=== PATIENT | male | born 1965 | race Caucasian/White ===

== ENCOUNTER → 2016-11-16 | Outpatient (CLI) | payer OTHER ==
[~2016-11-16] MED LIST: BUPR100T8 PO; FOLI1TAB7 PO; INSU1INJ33 SC; MELO15TA10 PO; METF-384 PO; METH15TA2 PO; METH2.5T PO; OXYC1TAB3 PO; PRED20TA PO; PRLSR20 PO; VORT1TAB3 PO
[2016-11-16 10:50] LABS: BLOOD UREA NITROGEN 15 mg/dl (7-18); BUN/CREATININE RATIO 17.7 (10-20); CALCIUM 8.9 mg/dl (8.5-10.1); CARBON DIOXIDE 27 mmol/L (21-32); CHLORIDE 103 mmol/L (98-107); CREATININE 0.84 mg/dl (0.60-1.40); GLUCOSE 282 mg/dl (70-99); POTASSIUM 4.3 mmol/L (3.5-5.1); SODIUM 138 mmol/L (136-145)
[2016-11-16 10:54] LABS: CHOLESTEROL 120 mg/dl (0-200); HDL CHOLESTEROL 30 mg/dl; LDL CHOLESTEROL CALCULATED 70 mg/dl; TRIGLYCERIDES 102 mg/dl (0-150); VERY LOW DENSITY LIPOPROT CALC 20 mg/dl
[2016-11-16 11:41] LABS: ESTIMATED AVERAGE GLUCOSE 220 mg/dl; HA1C FLAG Normal (Normal)
== END | disposition home or self-care (01) ==
LOC: C.LAB1850 09:37
PROVIDERS: ATTEND Nurse Practitioner Adult Health
DX: E11.9 Type 2 diabetes mellitus without complications (principal); E78.5 Hyperlipidemia, unspecified

== ENCOUNTER → 2017-01-11 | Outpatient (CLI) | payer OTHER ==
--- NOTE | 2017-01-11 11:07 | DIAGNOSTIC IMAGING REPORT ---
RIGHT ANKLE MIN 3 VIEWS ROUTINE CLINICAL HISTORY: Right ankle pain COMPARISON: 04/15/2016 DISCUSSION: No acute fractures are visualized. There are mild degenerative changes. There are no erosive changes. The ankle mortise appears intact. There is no evidence for soft tissue swelling. IMPRESSION: Mild degenerative change. No acute fractures. Electronically signed by: Joshua Troy M.D. 01/11/2017 11:05 AM Dictated Date/Time: 01/11/2017 11:03 AM
--- NOTE | 2017-01-11 11:11 | DIAGNOSTIC IMAGING REPORT ---
LEFT ANKLE 3 VIEWS HISTORY: Left ankle pain. COMPARISON: Left ankle 04/15/2016. FINDINGS: There is no fracture or dislocation. Soft tissues are unremarkable. Mild degenerative changes within the ankle, unchanged. There are few well-corticated ossific densities at the medial and lateral malleoli consistent with old avulsion injuries. This is also unchanged. Chronic calcification at the plantar fascia. IMPRESSION: No change compared to the prior study. No acute fracture or dislocation within the left ankle. Electronically signed by: Bryan Jain M.D. 01/11/2017 11:09 AM Dictated Date/Time: 01/11/2017 11:07 AM
== END | disposition home or self-care (01) ==
LOC: C.RAD1850 10:27
PROVIDERS: ATTEND Internal Medicine Rheumatology
DX: L40.50 Arthropathic psoriasis, unspecified (principal); M25.579 Pain in unspecified ankle and joints of unspecified foot; Z79.899 Other long term (current) drug therapy

== ENCOUNTER → 2017-01-14 | Outpatient (CLI) | payer OTHER | END | disposition home or self-care (01) | LOC: C.LABSPEC 10:49 | PROVIDERS: ATTEND Family Medicine | DX: R10.9 Unspecified abdominal pain (principal) ==

== ENCOUNTER → 2017-01-18 | Outpatient (CLI) | payer OTHER ==
--- NOTE | 2017-01-18 14:24 | DIAGNOSTIC IMAGING REPORT ---
RENAL ULTRASOUND HISTORY: Acute right flank pain. COMPARISON: None. FINDINGS: Right kidney: 11.7 cm. No hydronephrosis. Normal corticomedullary differentiation and cortical thickness. Left kidney: 12.7 cm. No hydronephrosis. Normal corticomedullary differentiation and cortical thickness. Bladder: No bladder wall thickening. Only the right ureteral jet was identified this time. IMPRESSION: No hydronephrosis. Electronically signed by: Bryan Jain M.D. 01/18/2017 2:23 PM Dictated Date/Time: 01/18/2017 2:21 PM
== END | disposition home or self-care (01) ==
LOC: C.ULTR 13:41
PROVIDERS: ATTEND Internal Medicine
DX: R10.9 Unspecified abdominal pain (principal)

== ENCOUNTER → 2017-03-02 | Outpatient (CLI) | payer OTHER ==
[~2017-03-02] MED LIST changes: +[UNRECOGNIZED DRUG - CODE]
[2017-03-02 12:28] LABS: BASO % 0.6 %; BASO ABS # 0.04 K/uL (0-0.2); COMPLETE YES; EOS % 3.4 %; HEMATOCRIT 42.3 % (42-52); IG% 0.4 %; LYMPH % 34.8 %; LYMPH ABS # 2.33 K/uL (1.2-3.4); MEAN CORPUSCULAR HEMOGLOBIN 30.2 pg (25-34); MEAN CORPUSCULAR HGB CONC 34.8 g/dl (32-36); MEAN PLATELET VOLUME 9.2 fL (7.4-10.4); MONO % 7.5 %; NEUT % 53.3 %; PLATELET COUNT 354 K/uL (130-400); RED BLOOD COUNT 4.86 M/uL (4.7-6.1)
[2017-03-02 13:22] LABS: ALT/SGPT 58 U/L (12-78)
[2017-03-02 13:25] LABS: ALKALINE PHOSPHATASE 86 U/L (45-117); AST/SGOT 21 U/L (15-37)
== END | disposition home or self-care (01) ==
LOC: C.LAB1850 10:26
PROVIDERS: ATTEND Internal Medicine Rheumatology
DX: M25.579 Pain in unspecified ankle and joints of unspecified foot (principal); L40.50 Arthropathic psoriasis, unspecified; Z51.81 Encounter for therapeutic drug level monitoring; Z79.899 Other long term (current) drug therapy

== ENCOUNTER 2017-03-06 06:07 | Emergency (ER) | payer OTHER ==
[~2017-03-06] VITALS: Ht 180.3 cm; Wt 119.2 kg
[2017-03-06 06:10] VITALS: TEMP 36.4; Ht 180.3 cm; Wt 119.2 kg
[2017-03-06] MEDS ORDERED: OXYCODONE HCL IR 5 MG TAB (IMMEDIATE RELEASE) PO STA (06:39)
[2017-03-06] MEDS ORDERED: PROPARACAINE HCL 0.5% OP SOLN 15 ML BTL OP STA (07:00)
--- NOTE | 2017-03-06 07:44 | Ophthalmology Consultation ---
Ophthalmology Consultation Date of Service: Mar 06, 2017. Requested By: [facility] History of Present Illness: 51 y/o male w/ h/o scleritis, presents w/ several days of worsening eye pain. Followed in past by Dr. Sun. Has been using topical prednisone drops but have not been helping CC: pain Vision: decreased Location (of CC): OS Quality/Severity: severe Duration: 5-7 days Timing: sudden Context: psoriatic arthritis Associated Signs/Symptoms: none Modifying Factors: none No other eye complaints. Mood and Affect: normal Past Ocular History: Right Eye: 1. scleritis Left Eye: 1. scleritis Medications: see EMR Relevant Past Medical History: psoriatic arthritis DM2 [facility] Near card OD: 20/30 OS: 20/40 IOP: 18 OD, 20 OS VF: full to count fingers OU Motility: full OU External: The ocular adnexae are unremarkable. SLE: Lids/Lashes: wnl OU Conjunctiva/Sclera: quiet OD; +diffuse scleritis with more superior involvement --no blanching w/ 2.5% phenylephrine Cornea: clear OU Anterior Chamber: deep and quiet OU Iris: normal OU; no NVI OU Lens: trace nsc OU Dilated fundus exam OD: deferred Dilated fundus exam OS: deferred Assessment and Plan: 1. Scleritis OS -on methotrexate and meloxicam for psoriatic arthritis -recommend stop prednisolone drops -start prednisone 60mg x 3 days, then 40mg x 3 days, then 20mg x 3 days, then 10mg x 3 days, then stop -f/u w/ ophth this coming week -f/u w/ rheumatology Simeon Cary DO
[2017-03-06] MEDS ORDERED: NovoLIN-R INSULIN PER UNIT CHARGE SC STA (08:09)
[2017-03-06] MEDS ORDERED: METH15TA2 PO (08:10)
[2017-03-06] MEDS ORDERED: BUPR100T8 PO (08:10)
[2017-03-06] MEDS ORDERED: PRED20TA PO (08:13)
[2017-03-06] MEDS ORDERED: OXYC1TAB3 PO (08:14)
--- NOTE | 2017-03-06 08:15 | EMERGENCY ROOM VISIT NOTE ---
History Report prepared by Melissa: Catherine Cm Under the Supervision of: Dr. Cecil Ryan M.D. First contact with patient: 06:27 Chief Complaint: EYE ASSESSMENT Stated Complaint: EYE History of Present Illness The patient is a 51 year old male who presents to the Emergency Room with complaints of persistent left eye pain starting a couple days ago. He currently rates his discomfort as a 9/10 in severity. He has pain and drainage from his eye. He is unable to open his eye. He has a history of scleritis and psoriatic arthritis for the past 5 years. He has experienced 2-3 flare ups in the past. The flare ups usually lasts for 2 weeks at a time. He has prednisone drops to use. He has never had any injections or numbing medications for his eye. He denies having any family with rashes. He is on methotrexate and meloxicam. Source of History: patient Onset: couple days ago Position: eye (left) Symptom Intensity: 9/10 Quality: other (pain) Timing: other (persistent) Note: Pt has eye drainage. Review of Systems See HPI for pertinent positives & negatives. A total of 10 systems reviewed and were otherwise negative. Past Medical & Surgical Medical Problems: (1) Diab Tita Wo Compl, Type Ii Or Unspec Type, Not Uncntrld (2) Lumbago (3) Right arm cellulitis Surgical Problems: (1) H/O lumbosacral spine surgery Family History Diabetes mellitus FH: lung disease FHx: cancer FHx: heart disease Hypertension Kidney disease Kidney stones Social History Smoking Status: Never Smoker Alcohol Use: none Drug Use: none Marital Status: Housing Status: lives with significant other Current/Historical Medications Scheduled Bupropion (Wellbutrin Sr), 100 MG PO DAILY Folic Acid (Folvite), 1 MG PO DAILY Meloxicam (Mobic), 15 MG PO DAILY Methotrexate (Trexall), 15 MG PO WK Prednisone (Prednisone), 0 PO DAILY Scheduled PRN Oxycodone Immediate Rel Tab (Roxicodone Ir), 1-2 TAB PO Q4H PRN for Severe Pain Allergies Coded Allergies: Alfuzosin (Unverified Adverse Reaction, Unknown, "HEART ATTACK SYMPTOMS", 03/06/17) Aspirin (Unverified Adverse Reaction, Unknown, "STROKE LIKE SYMPTOMS", ) Physical Exam Vital Signs Date Time Temp Pulse Resp B/P Pulse Ox O2 Delivery O2 Flow Rate FiO2 03/06/17 08:26 82 17 131/100 97 03/06/17 06:10 36.4 93 20 142/86 95 Room Air Right Eye Acuity: 20/40 Left Eye Acuity: 20/200 Physical Exam GENERAL: Patient is uncomfortable appearing and in moderate distress. HEENT: No acute trauma, normocephalic atraumatic, mucous membranes moist, no nasal congestion. Injected left sclera with severe pain/photophobia. Mild drainage currently, unable to get visual acuity due to pain. NECK: No stridor, no adenopathy, no meningismus, trachea is midline. LUNGS: No dyspnea. Clear to auscultation and equal bilaterally. No wheeze, no rhonchi. HEART: Regular rate and rhythm. No murmurs, rubs, gallops appreciated. EXTREMITIES: Normal motion all extremities, no cyanosis, no edema. NEUROLOGIC: Alert and oriented, no acute motor or sensory deficits, no focal weakness, cranial nerves grossly intact. SKIN: No rash, no jaundice, no diaphoresis. Medical Decision & Procedures Laboratory Results Test 03/06/17 08:02 Bedside Glucose 344 mg/dl (70-99) Medications Administered Medications (Trade) Dose Ordered Sig/Demian Route Start Time Stop Time Status Last Admin Dose Admin Oxycodone HCl (Roxicodone Immediate Rel Tab) 10 mg NOW STAT PO 03/06/17 06:39 03/06/17 06:40 DC 03/06/17 06:47 10 MG Proparacaine HCl (Alcaine 0.5% Oph Soln) 2 drops NOW STAT OP 03/06/17 07:00 03/06/17 07:02 DC 03/06/17 07:00 2 DROPS Prednisone (PredniSONE TAB) 60 mg NOW STAT PO 03/06/17 08:02 03/06/17 08:03 DC 03/06/17 08:15 60 MG Insulin Human Regular (novoLIN-R U-100 PER UNIT) 10 units NOW STAT SC 03/06/17 08:09 03/06/17 08:10 DC 03/06/17 08:16 10 UNITS ED Course 0632: The patient was evaluated in room A2. A complete history and physical exam was performed. 0639: Oxycodone HCl 10 mg PO. 0655: I discussed the patient's case with Maya Linn - Ophthalmology. He suggested medications for the patient. He will come to see him. 0700: Proparacaine HCl 2 drops OP. 0701: I reevaluated the patient. I informed him of Dr. Cary plans. 0741: Dr. Cary is at bedside. 0750: I spoke with Dr. Cary regarding his recommendations for the patient. 0757: I reevaluated the patient. He is still having pain in his eye. I discussed results and discharge instructions. He has a follow up appointment with endocrine on Wednesday. He notes previously having been on insulin. He is comfortable with receiving a short acting dose of insulin in the ED. He has agreed to monitoring his sugars and avoiding all carbohydrates for the next few days. I have asked case management to discuss with him follow up with ophthalmology next week. He verbalized understanding and agreement. The patient is ready for discharge. 0802: Prednisone 60 mg PO. 0809: Insulin Human Regular 10 units SC. Medical Decision Pleasant 51 yr old male arrives with complaint of left eye irritation. Long history of scleritis periodically on steroids. He was evaluated by Optho who feel he will need systemic prednisone (see note). He is diabetic and sugars are already elevated. Given SC insulin and strict instructions regarding no carbs and need for close BG monitoring. Made it clear to him there is a chance he may end up getting admitted. He will be seen by Endo on Wednesday. Reviewed symptoms requiring return. Asked case management to help set him up with general optho as Dr Cary is retinal specialist. Consults Time Called: [phone] Consulting Physician: Maya Linn - Ophthalmology Returned Call: 06 I discussed the patient's case with him. He will come to see the patient. Impression Primary Impression: Scleritis of left eye Scribe Attestation The scribe's documentation has been prepared under my direction and personally reviewed by me in its entirety. I confirm that the note above accurately reflects all work, treatment, procedures, and medical decision making performed by me. Departure Information Dispostion Home / Self-Care Prescriptions Oxycodone Immediate Rel Tab (ROXICODONE IR) 5 Mg Tab 1-2 TAB PO Q4H Y for Severe Pain, #30 TAB Prov: Cecil Ryan M.D. 03/06/17 Prednisone (Prednisone) 20 Mg Tab 0 PO DAILY, #16 TAB 3 TABS DAILY FOR 2 DAYS, THEN 2 TABS DAILY FOR 3 DAYS, THEN 1 TAB DAILY FOR 3 DAYS, THEN 1/2 TAB DAILY FOR 3 DAYS. Prov: Cecil Ryan M.D. 03/06/17 Referrals Debbie Lassiter CRNP (PCP) Patient Instructions My [facility] Additional Instructions It is very important you follow up with quality control inspector heading in then week. Case management will help you set this up during business hours if you have difficulty. Call your insurance company to discuss which providers in area take your insurance. You have received a narcotic pain medication prescription. These medications may cause drowsiness and should not be used with other sedative medications. Do not drive, drink alcohol, perform dangerous activities, nor make important decisions after taking these medications. desktop manager use or inappropriate use may lead to addiction. Return if worsening pain, fevers, swelling, or other concerns. Avoid as much carbohydrates/sugars as possible. Keep your appointment for Wednesday morning with network applications specialist as your sugars are high, and you are starting on steroids.
[2017-03-06 08:26] VITALS: BP 131/100; PULSE 82; O2SAT 97
[2017-04-14] MEDS ORDERED: MELO15TA10 PO (08:10)
[2017-04-14] MEDS ORDERED: FOLI1TAB7 PO (08:10)
== END 2017-03-06 08:28 | disposition home or self-care (01) ==
LOC: C.EDB 06:08 → C.EDA 08:28
DX: H15.002 Unspecified scleritis, left eye (principal); L40.50 Arthropathic psoriasis, unspecified; E11.9 Type 2 diabetes mellitus without complications; Z83.3 Family history of diabetes mellitus; Z83.6 Family history of other diseases of the respiratory system; Z80.9 Family history of malignant neoplasm, unspecified; Z82.49 Family history of ischemic heart disease and other diseases of the circulatory system; Z84.1 Family history of disorders of kidney and ureter; Z79.899 Other long term (current) drug therapy

== ENCOUNTER → 2017-03-08 | Outpatient (CLI) | payer OTHER ==
[2017-03-08 12:39] LABS: ESTIMATED AVERAGE GLUCOSE 235 mg/dl; HA1C FLAG Normal (Normal)
[2017-03-08 14:09] LABS: RATIO 12.2 mcg/mg (0-30.0)
== END | disposition home or self-care (01) ==
LOC: C.LAB1850 10:42
PROVIDERS: ATTEND Nurse Practitioner Family
DX: E11.9 Type 2 diabetes mellitus without complications (principal)

== ENCOUNTER → 2017-03-15 | Outpatient (CLI) | payer OTHER ==
[2017-03-15 17:04] LABS: ALT/SGPT 64 U/L (12-78); AST/SGOT 27 U/L (15-37); BLOOD UREA NITROGEN 15 mg/dl (7-18); BUN/CREATININE RATIO 17.1 (10-20); CALCIUM 9.2 mg/dl (8.5-10.1); CARBON DIOXIDE 28 mmol/L (21-32); CHLORIDE 99 mmol/L (98-107); CREATININE 0.88 mg/dl (0.60-1.40); GLUCOSE 172 mg/dl (70-99); POTASSIUM 3.8 mmol/L (3.5-5.1); SODIUM 134 mmol/L (136-145)
[2017-03-15 17:05] LABS: ALB/GLOB RATIO 1.1 (0.9-2); ALKALINE PHOSPHATASE 77 U/L (45-117); AMYLASE 109 U/L (25-115)
[2017-03-17 21:36] LABS: MYELOPEROXIDASE AB <1.0 AI (<1.0)
== END | disposition home or self-care (01) ==
LOC: C.LAB1850 12:22
PROVIDERS: ATTEND Internal Medicine Rheumatology
DX: E11.9 Type 2 diabetes mellitus without complications (principal); N28.89 Other specified disorders of kidney and ureter; Z87.442 Personal history of urinary calculi; R14.0 Abdominal distension (gaseous); H15.009 Unspecified scleritis, unspecified eye; Z79.899 Other long term (current) drug therapy; L40.50 Arthropathic psoriasis, unspecified

== ENCOUNTER → 2017-03-22 | Outpatient (CLI) | payer OTHER ==
[~2017-03-22] MED LIST changes: +OPTIRAY 320 IV PRN
--- NOTE | 2017-03-22 14:05 | DIAGNOSTIC IMAGING REPORT ---
CT ABD/PELVIS IV CONTRAST ONLY CLINICAL HISTORY: N28.89 Renal massR19.00 Abdominal [id number] Night [id number] COMPARISON STUDY: Renal ultrasound dated 01/18/2017 TECHNIQUE: Following the IV administration of 95 mL of Optiray-320, CT scan of the abdomen and pelvis was performed from the lung bases to the proximal femurs. Images are reviewed in the axial, sagittal, and coronal planes. IV contrast was administered without complication. CT DOSE: 1015.26 mGycm FINDINGS: Lower chest: The heart is normal in size and configuration, without pericardial effusion. The lung bases and pleural spaces are clear. Liver: There is hepatic steatosis. No focal masses are visualized. Gallbladder: Unremarkable. Spleen: Normal in size and attenuation. Pancreas: Unremarkable. Adrenal glands: Unremarkable. Kidneys: There is a to small to characterize millimeter hypodensity within the midpole the left kidney. There are no definite solid renal masses. No collecting system filling defects are visualized. Bowel: There are no transition zones indicate bowel obstruction. The appendix appears normal. There is no acute diverticulitis. Peritoneum: There is no intraperitoneal free air or abdominal ascites. There is small fat-containing umbilical hernia. There is a small fat-containing left inguinal hernia. Vasculature: The abdominal aorta is normal in course and caliber. Adenopathy: None. Pelvic viscera: There is bladder wall thickening. Skeletal structures: No destructive osseous lesions are seen. IMPRESSION: 1. No solid renal masses identified 2. Bladder wall thickening 3. Hepatic steatosis 4. No evidence of bowel obstruction. No evidence of free air 5. Normal appendix. No evidence of acute diverticulitis. Electronically signed by: Joshua Troy M.D. 03/22/2017 2:04 PM Dictated Date/Time: 03/22/2017 1:59 PM
== END | disposition home or self-care (01) ==
LOC: C.CTS 13:00
PROVIDERS: ATTEND Nurse Practitioner Adult Health
DX: N28.89 Other specified disorders of kidney and ureter (principal); R61 Generalized hyperhidrosis; R19.00 Intra-abdominal and pelvic swelling, mass and lump, unspecified site

== ENCOUNTER → 2017-03-25 | Outpatient (CLI) | payer OTHER ==
[~2017-03-25] MED LIST changes: -OPTIRAY 320 IV PRN
== END | disposition home or self-care (01) ==
LOC: C.LAB1850 10:10
PROVIDERS: ATTEND Nurse Practitioner Adult Health
DX: R79.89 Other specified abnormal findings of blood chemistry (principal)

== ENCOUNTER 2017-04-14 18:08 | Emergency (ER) | payer OTHER ==
[~2017-04-14] VITALS: Ht 180.3 cm; Wt 115.4 kg
[~2017-04-14 18:08] MED LIST changes: -INSU1INJ33 SC; -METF-384 PO; -METH2.5T PO; -PRLSR20 PO; -VORT1TAB3 PO; -[UNRECOGNIZED DRUG - CODE]
[2017-04-14 18:11] VITALS: BP 153/85; PULSE 73; TEMP 36.6; O2SAT 97; Ht 180.3 cm; Wt 115.4 kg
[2017-04-14] MEDS ORDERED: SODIUM CHLORIDE 0.9% 1000ML 1,000 ML IV STA (18:20)
[2017-04-14] MEDS ORDERED: SODIUM CHLORIDE 0.9% 1000ML 500 ML IV STA (18:20)
--- NOTE | 2017-04-14 18:30 | EMERGENCY ROOM VISIT NOTE ---
History Report prepared by Melissa: Reva White Under the Supervision of: Dr. Michael Fountain M.D. First contact with patient: 18:16 Chief Complaint: ABNORMAL LABS Stated Complaint: PANCREATITIS, ABN LABS History of Present Illness The patient is a 51 year old male who presents to the Emergency Room with complaints of pancreatitis. The patient has had an abnormal pancreas test today at [facility] by lab work, and had high lipase levels 3 weeks ago. He has intermittent abdominal pain every day and rates the pain at a 5/10. He states that he was on medication that causes high lipase levels. He stopped taking the medication 3 weeks ago when his symptoms began. The patient is nauseous and the pain worsens when he eats. He denies urinary symptoms and vomiting. Recently, he had a CT scan with contrast that was normal. He also had an ultrasound of his gallbladder, pancreas, liver, and right kidney. He has a history of night sweats for the last couple of years. The patient has no abdominal surgery history. Source of History: patient Onset: 3 weeks ago Position: abdomen Symptom Intensity: rated at a 5/10 Modifying Factors (Worsening): eating Associated Symptoms: + nausea Review of Systems See HPI for pertinent positives & negatives. A total of 10 systems reviewed and were otherwise negative. Past Medical & Surgical Medical Problems: (1) Diab Tita Wo Compl, Type Ii Or Unspec Type, Not Uncntrld (2) Lumbago (3) Right arm cellulitis Surgical Problems: (1) H/O lumbosacral spine surgery Family History Diabetes mellitus FH: lung disease FHx: cancer FHx: heart disease Hypertension Kidney disease Kidney stones Social History Smoking Status: Former Smoker Alcohol Use: none Drug Use: none Marital Status: Housing Status: lives with significant other Current/Historical Medications Scheduled Folic Acid (Folvite), 1 MG PO 6XWK Insulin Degludec (Tresiba Flextouch), 55 UNITS SC HS Meloxicam (Mobic), 15 MG PO 6XWK Metformin Hcl (Glucophage), 1,000 MG PO BID Methotrexate Sodium (Methotrexate), 10 MG PO WK Omeprazole (Prilosec), 20 MG PO DAILY Vortioxetine HBr (Trintellix), 20 MG PO STOPPED Allergies Coded Allergies: Alfuzosin (Verified Adverse Reaction, Unknown, "HEART ATTACK SYMPTOMS", ) Aspirin (Verified Adverse Reaction, Unknown, "STROKE LIKE SYMPTOMS", ) Physical Exam Vital Signs Date Time Temp Pulse Resp B/P (MAP) Pulse Ox O2 Delivery O2 Flow Rate FiO2 04/14/17 18:11 36.6 73 22 153/85 97 Room Air Physical Exam GENERAL: Patient is in no acute distress. HEENT: No acute trauma, normocephalic atraumatic, mucous membranes moist, no nasal congestion, no scleral icterus. NECK: No stridor, no adenopathy, no meningismus, trachea is midline. LUNGS: Clear to auscultation bilaterally, no wheeze, no rhonchi, breath sounds equal. HEART: Without murmurs gallops or rubs, regular rate and rhythm. ABDOMEN: Soft, nontender, bowel sounds positive, no hernias, no peritonitis. EXTREMITIES: No cyanosis or edema, full range of motion of all the joints without pain or difficulty, no signs for acute trauma. NEUROLOGIC: Oriented x 3, no acute motor or sensory deficits, no focal weakness. SKIN: No rash, no jaundice, no diaphoresis. Medical Decision & Procedures Laboratory Results 04/14/17 19:40 Red Blood Count 4.83, Mean Corpuscular Volume 87.8, Mean Corpuscular Hemoglobin 30.6, Mean Corpuscular Hemoglobin Concent 34.9, Mean Platelet Volume 9.1, Neutrophils (%) (Auto) 54.0, Lymphocytes (%) (Auto) 30.1, Monocytes (%) (Auto) 11.3, Eosinophils (%) (Auto) 3.8, Basophils (%) (Auto) 0.4, Neutrophils # (Auto ) 3.87, Lymphocytes # (Auto) 2.16, Monocytes # (Auto) 0.81, Eosinophils # (Auto ) 0.27, Basophils # (Auto) 0.03 04/14/17 19:40 Test 04/14/17 19:40 White Blood Count 7.17 K/uL (4.8-10.8) Red Blood Count 4.83 M/uL (4.7-6.1) Hemoglobin 14.8 g/dL (14.0-18.0) Hematocrit 42.4 % (42-52) Mean Corpuscular Volume 87.8 fL (80-100) Mean Corpuscular Hemoglobin 30.6 pg (25-34) Mean Corpuscular Hemoglobin Concent 34.9 g/dl (32-36) Platelet Count 360 K/uL (130-400) Mean Platelet Volume 9.1 fL (7.4-10.4) Neutrophils (%) (Auto) 54.0 % Lymphocytes (%) (Auto) 30.1 % Monocytes (%) (Auto) 11.3 % Eosinophils (%) (Auto) 3.8 % Basophils (%) (Auto) 0.4 % Neutrophils # (Auto) 3.87 K/uL (1.4-6.5) Lymphocytes # (Auto) 2.16 K/uL (1.2-3.4) Monocytes # (Auto) 0.81 K/uL (0.11-0.59) Eosinophils # (Auto) 0.27 K/uL (0-0.5) Basophils # (Auto) 0.03 K/uL (0-0.2) RDW Standard Deviation 42.2 fL (36.4-46.3) RDW Coefficient of Variation 13.2 % (11.5-14.5) Immature Granulocyte % (Auto) 0.4 % Immature Granulocyte # (Auto) 0.03 K/uL (0.00-0.02) Anion Gap 7.0 mmol/L (3-11) Est Creatinine Clear Calc Drug Dose 137.8 ml/min Estimated GFR () 118.4 Estimated GFR (Non- 102.2 BUN/Creatinine Ratio 18.7 (10-20) Calcium Level 9.4 mg/dl (8.5-10.1) Total Bilirubin 0.4 mg/dl (0.2-1) Aspartate Amino Transf (AST/SGOT) 21 U/L (15-37) Alanine Aminotransferase (ALT/SGPT) 52 U/L (12-78) Alkaline Phosphatase 76 U/L (45-117) Total Protein 7.5 gm/dl (6.4-8.2) Albumin 3.7 gm/dl (3.4-5.0) Globulin 3.8 gm/dl (2.5-4.0) Albumin/Globulin Ratio 1.0 (0.9-2) Lipase 374 U/L (73-393) Laboratory results reviewed by me. ED Course 1820: The patient was evaluated in room B6. A complete history and physical exam was performed. 2030: Reevaluated the patient. Discussed results and discharge instructions: He verbalized understanding and agreement. The patient is ready for discharge. Medical Decision The patient is a 51 year old male who presents to the ED with complaints of pancreatitis. Differential diagnoses considered include pancreatitis, gall stones, medication reaction, dehydration, pancreatic duct narrowing. There is no leukocytosis or concerning anemia. No significant electrolyte abnormality, kidney failure or hepatitis. There is no pancreatitis. On exam, the patient has no pain across the abdomen. He has not been vomiting, he is not toxic. I reviewed the patient's recent outpatient workup. Nothing really has been found to explain his pancreatitis. He did stop a medication which may have been responsible for the pancreatitis. The patient's lipase was elevated earlier today on laboratory testing although it is normal now. I wonder if the earlier value was an error. The patient does not appear to have pancreatitis clinically. He was reassured by the current negative lipase test. He is being discharged with outpatient follow-up. Medication Reconciliation: I attest that I have personally reviewed the patient' s current medication list. Blood Pressure Screening: Patient was found to have an elevated blood pressure and was referred to their primary doctor for recheck and further treatment. Impression Primary Impression: Pancreatitis Scribe Attestation The scribe's documentation has been prepared under my direction and personally reviewed by me in its entirety. I confirm that the note above accurately reflects all work, treatment, procedures, and medical decision making performed by me. Departure Information Dispostion Home / Self-Care Referrals No Doctor, Assigned (PCP) Patient Instructions My [facility]
[2017-04-14] MEDS ORDERED: METH2.5T PO (19:00)
[2017-04-14] MEDS ORDERED: VORT1TAB3 PO (19:00)
[2017-04-14] MEDS ORDERED: INSU1INJ33 SC (19:00)
[2017-04-14] MEDS ORDERED: METF-384 PO (19:00)
[2017-04-14] MEDS ORDERED: PRLSR20 PO (19:00)
[2017-04-14 19:53] LABS: BASO % 0.4 %; BASO ABS # 0.03 K/uL (0-0.2); COMPLETE YES; EOS % 3.8 %; HEMATOCRIT 42.4 % (42-52); IG% 0.4 %; LYMPH % 30.1 %; LYMPH ABS # 2.16 K/uL (1.2-3.4); MEAN CELL VOLUME 87.8 fL (80-100); MEAN CORPUSCULAR HEMOGLOBIN 30.6 pg (25-34); MEAN CORPUSCULAR HGB CONC 34.9 g/dl (32-36); MEAN PLATELET VOLUME 9.1 fL (7.4-10.4); MONO % 11.3 %; PLATELET COUNT 360 K/uL (130-400); RED BLOOD COUNT 4.83 M/uL (4.7-6.1); WHITE BLOOD COUNT 7.17 K/uL (4.8-10.8)
[2017-04-14 20:12] LABS: BUN/CREATININE RATIO 18.7 (10-20); CREATININE 0.81 mg/dl (0.60-1.40); POTASSIUM 4.1 mmol/L (3.5-5.1)
[2017-04-14 20:20] LABS: CALCIUM 9.4 mg/dl (8.5-10.1)
== END 2017-04-14 20:41 | disposition home or self-care (01) ==
LOC: C.EDB 18:09
DX: K85.90 Acute pancreatitis without necrosis or infection, unspecified (principal); E11.9 Type 2 diabetes mellitus without complications; M54.5 Low back pain; Z83.3 Family history of diabetes mellitus; Z83.6 Family history of other diseases of the respiratory system; Z80.9 Family history of malignant neoplasm, unspecified; Z82.49 Family history of ischemic heart disease and other diseases of the circulatory system; Z84.1 Family history of disorders of kidney and ureter; Z87.891 Personal history of nicotine dependence; Z79.899 Other long term (current) drug therapy

== ENCOUNTER → 2017-04-14 | Outpatient (CLI) | payer OTHER ==
[2017-04-14 09:49] LABS: ALKALINE PHOSPHATASE 68 U/L (45-117); ALT/SGPT 51 U/L (12-78); AMYLASE 191 U/L (25-115); BLOOD UREA NITROGEN 14 mg/dl (7-18); BUN/CREATININE RATIO 15.9 (10-20); CARBON DIOXIDE 27 mmol/L (21-32); CHLORIDE 107 mmol/L (98-107); GLUCOSE 184 mg/dl (70-99); SODIUM 141 mmol/L (136-145)
[2017-04-14 09:51] LABS: AST/SGOT 17 U/L (15-37)
[2017-04-14 09:52] LABS: CALCIUM 8.6 mg/dl (8.5-10.1)
== END | disposition home or self-care (01) ==
LOC: C.LAB1850 08:09
PROVIDERS: ATTEND Nurse Practitioner Adult Health
DX: N32.89 Other specified disorders of bladder (principal); Z79.899 Other long term (current) drug therapy; R14.0 Abdominal distension (gaseous); R61 Generalized hyperhidrosis; R74.8 Abnormal levels of other serum enzymes

== ENCOUNTER → 2017-04-14 | Outpatient (CLI) | payer OTHER ==
--- NOTE | 2017-04-14 12:27 | DIAGNOSTIC IMAGING REPORT ---
NUCLEAR GASTRIC EMPTYING STUDY CLINICAL HISTORY: Bloating. Diabetes. COMPARISON STUDY: Abdominal CT dated 03/22/2017. TECHNIQUE: Following the oral administration of 1.177 mCi of technetium 99m sulfur colloid in egg sandwich and 8 ounces of water, static abdominal images are obtained anteriorly and posteriorly at 0 minutes, 1 hour, 2 hour, and 4 hour time intervals. Gastric emptying was calculated utilizing the geometric mean method. FINDINGS: There is approximately 70% activity remaining at the 1 hour time interval, 30% remaining at the 2 hour time interval (normal is less than 60%), and 2% activity remaining at the 4 hour time interval (normal is less than 10%). IMPRESSION: Findings are consistent with normal gastric emptying for solids. Electronically signed by: Michael Snider M.D. 04/14/2017 12:26 PM Dictated Date/Time: 04/14/2017 12:25 PM
== END | disposition home or self-care (01) ==
LOC: C.NUCL 06:56
PROVIDERS: ATTEND Registered Nurse
DX: E11.65 Type 2 diabetes mellitus with hyperglycemia (principal); R14.0 Abdominal distension (gaseous)

== ENCOUNTER → 2017-04-14 | Outpatient (CLI) | payer OTHER ==
--- NOTE | 2017-04-14 07:26 | DIAGNOSTIC IMAGING REPORT ---
ABDOMINAL ULTRASOUND, RIGHT UPPER QUADRANT HISTORY: Pain. Nausea. R14.0 [id number] Indigestion Right upper [id number]. COMPARISON: None. FINDINGS: Pancreas: The pancreas demonstrates a normal echotexture. Liver: Fatty infiltration Gallbladder: No gallbladder wall thickening. No gallstones. CBD: 4 mm Right kidney: No hydronephrosis. IMPRESSION: Fatty infiltration of liver. Otherwise negative study Electronically signed by: Jorge Wilder M.D. 04/14/2017 7:25 AM Dictated Date/Time: 04/14/2017 7:23 AM
== END | disposition home or self-care (01) ==
LOC: C.ULTR 06:53
PROVIDERS: ATTEND Nurse Practitioner Adult Health
DX: K30 Functional dyspepsia (principal); R14.0 Abdominal distension (gaseous); K76.0 Fatty (change of) liver, not elsewhere classified

== ENCOUNTER → 2017-04-15 | Outpatient (CLI) | payer OTHER ==
[~2017-04-15] MED LIST changes: +INSU1INJ33 SC; +METF-384 PO; +METH2.5T PO; +PRLSR20 PO; +VORT1TAB3 PO; +[UNRECOGNIZED DRUG - CODE]
[2017-04-15 12:45] LABS: AMYLASE 61 U/L (25-115)
== END | disposition home or self-care (01) ==
LOC: C.LAB1850 10:46
PROVIDERS: ATTEND Nurse Practitioner Adult Health
DX: R79.89 Other specified abnormal findings of blood chemistry (principal); R74.8 Abnormal levels of other serum enzymes

== ENCOUNTER → 2017-04-19 | Outpatient (CLI) | payer OTHER ==
[~2017-04-19] MED LIST changes: -BUPR100T8 PO; -METH15TA2 PO; -OXYC1TAB3 PO; -PRED20TA PO
== END | disposition home or self-care (01) ==
LOC: C.LAB1850 13:22
PROVIDERS: ATTEND Nurse Practitioner Adult Health
DX: R79.89 Other specified abnormal findings of blood chemistry (principal)

== ENCOUNTER → 2017-06-07 | Outpatient (CLI) | payer OTHER ==
[~2017-06-07] MED LIST changes: -[UNRECOGNIZED DRUG - CODE]
[2017-06-07 13:43] LABS: ALT/SGPT 62 U/L (12-78); AMYLASE 56 U/L (25-115); BLOOD UREA NITROGEN 14 mg/dl (7-18); BUN/CREATININE RATIO 15.4 (10-20); CARBON DIOXIDE 27 mmol/L (21-32); CHLORIDE 108 mmol/L (98-107); CREATININE 0.89 mg/dl (0.60-1.40); GLUCOSE 107 mg/dl (70-99); POTASSIUM 3.9 mmol/L (3.5-5.1); SODIUM 142 mmol/L (136-145)
[2017-06-07 13:46] LABS: ALKALINE PHOSPHATASE 59 U/L (45-117); AST/SGOT 32 U/L (15-37)
[2017-06-07 14:58] LABS: URINE APPEARANCE CLEAR (CLEAR); URINE BILIRUBIN NEG (NEG); URINE COLOR YELLOW; URINE NITRITE NEG (NEG); URINE SPECIFIC GRAVITY 1.025 (1.000-1.030); UROBILINOGEN NEG (NEG); ZZUR CULT IF INDIC CLEAN CATCH YES
[2017-06-07 14:59] LABS: MANUAL MICROSCOPIC REQUIRED? NO; REVIEW REQ? NO
== END | disposition home or self-care (01) ==
LOC: C.LAB1850 12:16
PROVIDERS: ATTEND Nurse Practitioner Adult Health
DX: R79.89 Other specified abnormal findings of blood chemistry (principal); R63.5 Abnormal weight gain

== ENCOUNTER → 2017-06-09 | Outpatient (CLI) | payer OTHER | END | disposition home or self-care (01) | LOC: C.LABSPEC 16:16 | PROVIDERS: ATTEND Dermatology | DX: B35.3 Tinea pedis (principal) ==

== ENCOUNTER → 2017-06-15 | Outpatient (CLI) | payer OTHER ==
[2017-06-15 17:31] LABS: BASO % 0.4 %; BASO ABS # 0.03 K/uL (0-0.2); COMPLETE YES; EOS % 4.6 %; HEMATOCRIT 39.4 % (42-52); IG% 0.3 %; LYMPH % 42.8 %; LYMPH ABS # 3.07 K/uL (1.2-3.4); MEAN CELL VOLUME 87.8 fL (80-100); MEAN CORPUSCULAR HEMOGLOBIN 31.6 pg (25-34); MEAN PLATELET VOLUME 9.3 fL (7.4-10.4); MONO % 10.7 %; NEUT % 41.2 %; PLATELET COUNT 327 K/uL (130-400); RED BLOOD COUNT 4.49 M/uL (4.7-6.1); WHITE BLOOD COUNT 7.18 K/uL (4.8-10.8)
[2017-06-15 17:53] LABS: ALT/SGPT 41 U/L (12-78); AMYLASE 65 U/L (25-115); AST/SGOT 22 U/L (15-37)
[2017-06-15 17:55] LABS: ALKALINE PHOSPHATASE 70 U/L (45-117)
== END | disposition home or self-care (01) ==
LOC: C.LAB1850 16:14
PROVIDERS: ATTEND Nurse Practitioner Adult Health
DX: Z51.81 Encounter for therapeutic drug level monitoring (principal); Z79.899 Other long term (current) drug therapy; L40.50 Arthropathic psoriasis, unspecified; R74.8 Abnormal levels of other serum enzymes

== ENCOUNTER → 2017-06-28 | Outpatient (CLI) | payer OTHER ==
[2017-06-28 11:02] LABS: ALB/GLOB RATIO 0.9 (0.9-2); ALKALINE PHOSPHATASE 64 U/L (45-117); ALT/SGPT 47 U/L (12-78); AMYLASE 93 U/L (25-115); AST/SGOT 23 U/L (15-37); BLOOD UREA NITROGEN 13 mg/dl (7-18); BUN/CREATININE RATIO 14.1 (10-20); CARBON DIOXIDE 30 mmol/L (21-32); CHLORIDE 106 mmol/L (98-107); CREATININE 0.93 mg/dl (0.60-1.40); GLUCOSE 184 mg/dl (70-99); SODIUM 138 mmol/L (136-145)
[2017-06-28 11:17] LABS: ESTIMATED AVERAGE GLUCOSE 171 mg/dl; HA1C FLAG Normal (Normal)
== END | disposition home or self-care (01) ==
LOC: C.LAB1850 09:07
PROVIDERS: ATTEND Nurse Practitioner Adult Health
DX: R74.8 Abnormal levels of other serum enzymes (principal); R60.9 Edema, unspecified; E11.9 Type 2 diabetes mellitus without complications

== ENCOUNTER → 2017-07-26 | Outpatient (CLI) | payer OTHER | END | disposition home or self-care (01) | LOC: C.LABSPEC 12:29 | PROVIDERS: ATTEND Dermatology | DX: R21 Rash and other nonspecific skin eruption (principal) ==

== ENCOUNTER → 2017-08-09 | Outpatient (CLI) | payer OTHER ==
[2017-08-09 09:46] LABS: BASO % 0.7 %; BASO ABS # 0.04 K/uL (0-0.2); COMPLETE YES; EOS % 3.9 %; IG% 0.2 %; LYMPH % 35.7 %; LYMPH ABS # 1.99 K/uL (1.2-3.4); MEAN CORPUSCULAR HEMOGLOBIN 30.2 pg (25-34); MEAN CORPUSCULAR HGB CONC 35.6 g/dl (32-36); MEAN PLATELET VOLUME 9.6 fL (7.4-10.4); NEUT % 50.5 %; PLATELET COUNT 292 K/uL (130-400); RED BLOOD COUNT 5.06 M/uL (4.7-6.1); WHITE BLOOD COUNT 5.57 K/uL (4.8-10.8)
== END | disposition home or self-care (01) ==
LOC: C.LAB1850 08:56
PROVIDERS: ATTEND Surgery
DX: K82.8 Other specified diseases of gallbladder (principal); F33.1 Major depressive disorder, recurrent, moderate; F41.1 Generalized anxiety disorder

== ENCOUNTER → 2017-08-19 | Day surgery (SDC) | payer OTHER ==
[2017-08-10 07:24] VITALS: BMI 38.0
[~2017-08-19] VITALS: Ht 180.3 cm; Wt 124.5 kg
[~2017-08-19] MED LIST changes: +CEFAZOLIN 3000 MG/65 ML D5W IV SCH; +HEPARIN SOD 5000 UNIT/0.5 ML CARP SQ SCH; -INSU1INJ33 SC; +LACTATED RINGER'S 1000ML 1,000 ML IV SCH; -PRLSR20 PO; -VORT1TAB3 PO
[2017-08-19 07:07] VITALS: BP 140/73; PULSE 68; TEMP 36.7; O2SAT 97; Ht 180.3 cm; Wt 124.5 kg
--- NOTE | 2017-08-23 07:07 | EDITING REQUIRED CODING QUERY ---
DIAGNOSIS NEEDED Please provide a diagnosis for why the surgery was going to be performed: DIAGNOSIS:symptomatic gallstones Please provide a reason for why the procedure was cancelled: DIAGNOSIS: pt decided day of surgery he did not want to have the surgery and left before I even had a chance to talk to him Thank you for your assistance, Erica Coyne - Dice Maker
== END | disposition home or self-care (01) ==
LOC: C.ACU 06:53
PROVIDERS: ATTEND Surgery
DX: K80.20 Calculus of gallbladder without cholecystitis without obstruction (principal); Z53.20 Procedure and treatment not carried out because of patient's decision for unspecified reasons; Z01.810 Encounter for preprocedural cardiovascular examination; Z01.812 Encounter for preprocedural laboratory examination

== ENCOUNTER 2017-10-10 03:02 | Inpatient (IN) | payer OTHER ==
[~2017-10-10] VITALS: Ht 180.3 cm; Wt 126.8 kg
[~2017-10-10 03:02] MED LIST changes: -CEFAZOLIN 3000 MG/65 ML D5W IV SCH; -HEPARIN SOD 5000 UNIT/0.5 ML CARP SQ SCH; -LACTATED RINGER'S 1000ML 1,000 ML IV SCH
[2017-10-10] MEDS ORDERED: LORAZEPAM 2 MG/ML 1 ML VIAL ONE (03:08)
--- NOTE | 2017-10-10 03:10 | EMERGENCY ROOM VISIT NOTE ---
History Report prepared by Jean-Paulibe: Delaney Mcclain Under the Supervision of: Dr. Elton Patterson D.O. First contact with patient: 03:03 Stated Complaint: EVALUATION History of Present Illness The patient is a 52 year old male who presents to the Emergency Room with complaints of needing a psychiatric evaluation. He was brought to the ED via EMS and is accompanied by state police. EMS reports the patient was involved in a 12 hour stand off with police yesterday and into today. The incident started when he would not let his leave their home and threatened to kill her and their cats. She was eventually able to escape and ran to a local police station. The police came to the home, accompanied by [employer], where the patient threatened to kill police and also requested the police kill him. The patient and police were involved in a 12 hour stand off where multiple gunshots were fired but the patient was not hit. He was tased twice by police. He is still combative on exam. History is limited secondary to patients clinical condition. Case Management notes there is a 302 petition on file for the patient as well as a warrant for his arrest from state police. Source of History: patient, police, EMS History Limited By: sedation Onset: DATABASES COMPUTER CONSULTANT Position: other (global) Timing: constant Review of Systems See HPI for pertinent positives and negatives. A limited number systems were reviewed and were otherwise negative secondary to the patients clinical condition. Past Medical & Surgical Medical Problems: (1) Diab Tita Wo Compl, Type Ii Or Unspec Type, Not Uncntrld (2) Hernia of abdominal cavity (3) Lumbago (4) Right arm cellulitis Surgical Problems: (1) H/O lumbosacral spine surgery Family History Diabetes mellitus FH: lung disease FHx: cancer FHx: heart disease Hypertension Kidney disease Kidney stones Social History Smoking Status: Former Smoker Alcohol Use: none Drug Use: none Marital Status: Housing Status: lives with significant other Occupation Status: unemployed Current/Historical Medications Scheduled Folic Acid (Folvite), 1 MG PO 6XWK Meloxicam (Mobic), 15 MG PO 6XWK Metformin Hcl (Glucophage), 1,000 MG PO BID Methotrexate Sodium (Methotrexate), 10 MG PO WK Allergies Coded Allergies: Insulin (Verified Allergy, Severe, LOCALIZED REDNESS/SWELLING/LUMPS, ) PT STATES ALL INSULINS HE IS ALLERGIC TO Vortioxetine (Verified Allergy, Severe, PANCREATITIS, 08/10/17) Insulin Glargine (Verified Allergy, Intermediate, REDNESS LOCALIZED, LUMPS UNDER SKIN, 08/10/17) Alfuzosin (Verified Adverse Reaction, Unknown, "HEART ATTACK SYMPTOMS", ) Aspirin (Verified Adverse Reaction, Unknown, "STROKE LIKE SYMPTOMS", ) Physical Exam Vital Signs Date Time Temp Pulse Resp B/P (MAP) Pulse Ox O2 Delivery O2 Flow Rate FiO2 10/10/17 05:16 36.6 91 16 142/91 97 Nasal Cannula 2.0 10/10/17 04:54 36.6 97 18 152/86 95 Nasal Cannula 2.0 10/10/17 04:27 98 20 177/86 95 Nasal Cannula 2.0 10/10/17 04:03 102 20 173/97 90 Room Air 10/10/17 03:16 120 10/10/17 03:13 36.6 117 30 179/103 97 Room Air Physical Exam GENERAL: Patient is agitated, foaming at the mouth, writhing around on the bed HEAD: Contusion with tenderness to right occipital region of head. HENT: Normocephalic, atraumatic. Oropharynx unremarkable. EYES: Normal conjunctiva. Sclera non-icteric. NECK: Supple. No nuchal rigidity. FROM. No JVD. RESPIRATORY: Clear to auscultation. CARDIAC: Tachycardic heart rate, normal rhythm. Extremities warm and well perfused. Pulses equal. ABDOMEN: Soft, non-distended. No tenderness to palpation. No rebound or guarding. No masses. RECTAL: Deferred. MUSCULOSKELETAL: Abrasion to left chest. Abrasion to left flank. Abrasions to the upper extremities bilaterally. Chest examination reveals no tenderness. The back is symmetrical on inspection without obvious abnormality. There is no CVA tenderness to palpation. No joint edema. LOWER EXTREMITIES: Calves are equal size bilaterally and non-tender. No edema. No discoloration. NEURO: Patient is alert, moving all extremities but agitated, not cooperative. SKIN: No rash or jaundice noted. PSYCHIATRIC: Patient is agitated. Medical Decision & Procedures ER Provider Diagnostic Interpretation: X ray results as stated below per my interpretation and radiologist interpretation. Other radiology results as stated below per my review and radiologist interpretation CT C SPINE: Comparison: None Impression: No acute traumatic abnormality Comment: No cervical fracture Vertebral bodies are normal in height and alignment with only mild degenerative change at C5-C6 Intervertebral disc spaces maintained Cervical spinal canal is patent Radiologist: Horacio Barrera M.D. CT HEAD: Comparison: CT head November 18, 2014 Impression: Right frontal scalp laceration. No skull fracture. Mild streak artifact. No acute intracranial abnormality. Radiologist: Horacio Barrera M.D. CHEST X-RAY Negative for infiltrate. Laboratory Results 10/10/17 03:08 Red Blood Count 5.11, Mean Corpuscular Volume 87.3, Mean Corpuscular Hemoglobin 30.9, Mean Corpuscular Hemoglobin Concent 35.4, Mean Platelet Volume 9.2, Neutrophils (%) (Auto) 88.0, Lymphocytes (%) (Auto) 7.8, Monocytes (%) (Auto) 3.7, Eosinophils (%) (Auto) 0.0, Basophils (%) (Auto) 0.2, Neutrophils # (Auto) 11.45, Lymphocytes # (Auto) 1.01, Monocytes # (Auto) 0.48, Eosinophils # (Auto) 0.00, Basophils # (Auto) 0.02 10/10/17 03:08 Test 10/10/17 03:08 10/10/17 03:45 10/10/17 04:27 White Blood Count 13.00 K/uL (4.8-10.8) Red Blood Count 5.11 M/uL (4.7-6.1) Hemoglobin 15.8 g/dL (14.0-18.0) Hematocrit 44.6 % (42-52) Mean Corpuscular Volume 87.3 fL (80-100) Mean Corpuscular Hemoglobin 30.9 pg (25-34) Mean Corpuscular Hemoglobin Concent 35.4 g/dl (32-36) Platelet Count 327 K/uL (130-400) Mean Platelet Volume 9.2 fL (7.4-10.4) Neutrophils (%) (Auto) 88.0 % Lymphocytes (%) (Auto) 7.8 % Monocytes (%) (Auto) 3.7 % Eosinophils (%) (Auto) 0.0 % Basophils (%) (Auto) 0.2 % Neutrophils # (Auto) 11.45 K/uL (1.4-6.5) Lymphocytes # (Auto) 1.01 K/uL (1.2-3.4) Monocytes # (Auto) 0.48 K/uL (0.11-0.59) Eosinophils # (Auto) 0.00 K/uL (0-0.5) Basophils # (Auto) 0.02 K/uL (0-0.2) RDW Standard Deviation 42.2 fL (36.4-46.3) RDW Coefficient of Variation 13.3 % (11.5-14.5) Immature Granulocyte % (Auto) 0.3 % Immature Granulocyte # (Auto) 0.04 K/uL (0.00-0.02) Anion Gap 16.0 mmol/L (3-11) Est Creatinine Clear Calc Drug Dose 75.7 ml/min Estimated GFR () 59.3 Estimated GFR (Non- 51.2 BUN/Creatinine Ratio 8.0 (10-20) Calcium Level 9.1 mg/dl (8.5-10.1) Total Bilirubin 0.5 mg/dl (0.2-1) Direct Bilirubin 0.1 mg/dl (0-0.2) Aspartate Amino Transf (AST/SGOT) 32 U/L (15-37) Alanine Aminotransferase (ALT/SGPT) 65 U/L (12-78) Alkaline Phosphatase 93 U/L (45-117) Total Protein 8.1 gm/dl (6.4-8.2) Albumin 4.0 gm/dl (3.4-5.0) Beta-Hydroxybutyric Acid 3.33 mg/dL (0.2-2.81) Thyroid Stimulating Hormone (TSH) 2.560 uIu/ml (0.300-4.500) Ethyl Alcohol mg/dL < 3.0 mg/dl (0-3) Urine Color YELLOW Urine Appearance CLEAR (CLEAR) Urine pH 5.0 (4.5-7.5) Urine Specific [place] 1.038 (1.000-1.030) Urine Protein NEG (NEG) Urine Glucose (UA) 3+ (NEG) Urine Ketones 1+ (NEG) Urine Occult Blood TRACE (NEG) Urine Nitrite NEG (NEG) Urine Bilirubin NEG (NEG) Urine Urobilinogen NEG (NEG) Urine Leukocyte Esterase NEG (NEG) Urine WBC (Auto) 1-5 /hpf (0-5) Urine RBC (Auto) 0-4 /hpf (0-4) Urine Hyaline Casts (Auto) 1-5 /lpf (0-5) Urine Epithelial Cells (Auto) 5-10 /lpf (0-5) Urine Bacteria (Auto) NEG (NEG) Urine Opiates Screen NEG (NEG) Urine Methadone, Qualitative NEG (NEG) Urine Barbiturates NEG (NEG) Urine Phencyclidine (PCP) Level NEG (NEG) Ur Amphetamine/Methamphetamine NEG (NEG) MDMA (Ecstasy) Screen NEG (NEG) Urine Benzodiazepines Screen NEG (NEG) Urine Cocaine Metabolite NEG (NEG) Urine Marijuana (THC) POS (NEG) Arterial Blood pH 7.38 (7.35-7.45) Arterial Blood Partial Pressure CO2 38 mmHg (35-46) Arterial Blood Partial Pressure O2 88 mm/Hg (80-95) Arterial Blood HCO3 22 mmol/L (19-24) Arterial Blood Oxygen Saturation 96.7 % (90-95) Arterial Blood Base Excess -2.7 mEq/L (-9-1.8) Arterial Blood Gas Delivery 2 L Bernard Test POS (POS) Laboratory results reviewed by me Medications Administered Medications (Trade) Dose Ordered Sig/Demian Route Start Time Stop Time Status Last Admin Dose Admin Lorazepam (Ativan Inj) 2 mg STK-MED ONCE .ROUTE 10/10/17 03:08 10/10/17 03:09 DC 10/10/17 03:10 2 MG Ziprasidone (Geodon IM) 20 mg NOW STAT IM 10/10/17 03:12 10/10/17 03:13 DC 10/10/17 03:23 20 MG Sodium Chloride 1,000 ml @ 999 mls/hr Q1H1M STAT IV 10/10/17 04:04 10/10/17 05:04 DC 10/10/17 04:07 999 MLS/HR Sodium Chloride 500 ml @ 999 mls/hr Q31M STAT IV 10/10/17 04:34 10/10/17 05:04 DC 10/10/17 04:57 999 MLS/HR ED Course 0303: The patient was evaluated in room B1. A complete history and physical exam was performed. 0308: Ativan 2 mg IV. 0312: Geodon 20 mg IM. 0318: I reevaluated the patient. He wont speak to me but he does shake his head. 0404: NSS 1000 ml @ 999 mls/hr IV. 0434: 500 ml @ 999 mls/hr IV. 0450: I discussed the patients case with Dr. Dawson [facility] Hospitalist. The patient will be further evaluated. Medical Decision The differential diagnoses considered include mood disorder, infection, hypoglycemia, electrolyte abnormalities, cardiac sources, intracerebral event, toxicologic, neurologic, as well as others were entertained. Patient was more cooperative after administration of IV Ativan and IM Geodon. Patient states he has chronic back pain and type 2 diabetes. Patient has mild diabetic ketoacidosis by numbers with a anion gap elevated blood sugar elevated beta hydroxybutyrate but a normal pH. Patient states he is allergic to insulin. Patient was initially treated with IV fluids. Patient cannot be completely medically cleared for full psychiatric evaluation. Patient is in the custody of the [facility] police. Patient will be admitted to the hospital for further medical treatment as well as psychiatric treatment. Case was discussed with the [facility] hospitalists 5 AM for admission Medication Reconcilliation Current Medication List: was personally reviewed by me Blood Pressure Screening Patient's blood pressure: Elevated blood pressure The patients elevated blood pressure will be further addressed by the inpatient hospital medicine team. Consults Time Called: [phone] Consulting Physician: Dr. Dawson [facility] Hospitalist Returned Call: [phone] I discussed the patients case with Dr. Dawson [facility] Hospitalist. The patient will be further evaluated. Impression Primary Impression: DKA (diabetic ketoacidoses) Additional Impressions: Agitation Acute psychosis Closed head injury Critical Care I have personally spent greater than 35 minutes of critical care time in the direct management of this patient. This includes bedside care, interpretation of diagnostic studies, and testing, discussion with consultants, patient, and family members, and other required patient management activities. This 35 minutes is in excess of all separately billable procedures. Scribe Attestation The scribe's documentation has been prepared under my direction and personally reviewed by me in its entirety. I confirm that the note above accurately reflects all work, treatment, procedures, and medical decision making performed by me. Departure Information Dispostion Being Evaluated By Hospitalist Referrals Debbie Lassiter CRNP (PCP) Problem Qualifiers
[2017-10-10] MEDS ORDERED: ZIPRASIDONE 20 MG/ML SDV IM STA (03:12)
[2017-10-10 03:24] LABS: BASO % 0.2 %; BASO ABS # 0.02 K/uL (0-0.2); COMPLETE YES; HEMATOCRIT 44.6 % (42-52); IG% 0.3 %; LYMPH % 7.8 %; LYMPH ABS # 1.01 K/uL (1.2-3.4); MEAN CELL VOLUME 87.3 fL (80-100); MEAN CORPUSCULAR HEMOGLOBIN 30.9 pg (25-34); MEAN CORPUSCULAR HGB CONC 35.4 g/dl (32-36); MEAN PLATELET VOLUME 9.2 fL (7.4-10.4); MONO % 3.7 %; PLATELET COUNT 327 K/uL (130-400); RED BLOOD COUNT 5.11 M/uL (4.7-6.1)
[2017-10-10 03:57] LABS: CALCIUM 9.1 mg/dl (8.5-10.1); CREATININE 1.53 mg/dl (0.60-1.40); POTASSIUM 4.4 mmol/L (3.5-5.1); THYROID STIMULATING HORMONE 2.56 uIu/ml (0.300-4.500)
[2017-10-10] MEDS ORDERED: SODIUM CHLORIDE 0.9% 1000ML 1,000 ML IV STA (04:04)
[2017-10-10 04:23] LABS: BETA-HYDROXYBUTYRATE 3.33 mg/dL (0.2-2.81)
[2017-10-10 04:24] LABS: URINE APPEARANCE CLEAR (CLEAR); URINE BILIRUBIN NEG (NEG); URINE COLOR YELLOW; URINE NITRITE NEG (NEG); URINE SPECIFIC GRAVITY 1.038 (1.000-1.030); UROBILINOGEN NEG (NEG)
[2017-10-10 04:26] LABS: MANUAL MICROSCOPIC REQUIRED? NO; REVIEW REQ? NO
[2017-10-10] MEDS ORDERED: SODIUM CHLORIDE 0.9% 500ML 500 ML IV STA (04:34)
[2017-10-10 04:35] LABS: ALLEN TEST POS (POS); ARTERIAL BLD GAS O2 SATURATION 96.7 % (90-95); ARTERIAL BLOOD GAS BASE EXCESS -2.7 mEq/L (-9-1.8); ARTERIAL BLOOD GAS HCO3 22 mmol/L (19-24); ARTERIAL BLOOD GAS PO2 88 mm/Hg (80-95); ARTERIAL BLOOD GAS pH 7.38 (7.35-7.45); O2 ADMINISTRATION 2 L
[2017-10-10 04:40] LABS: BENZODIAZEPINE, URINE NEG (NEG); COCAINE,URINE NEG (NEG); PHENCYCLIDINE, URINE NEG (NEG)
[2017-10-10] MEDS ORDERED: DKA GOAL RANGE 150-250 mg/dl 1 EA ONE (04:45)
[2017-10-10] MEDS ORDERED: GLUCOSE 10 TABS/TUBE PO PRN ×2 (05:00→06:00)
[2017-10-10] MEDS ORDERED: INSULIN REGULAR 250 UNITS in SODIUM CHLORIDE 0.9% 250ML 250 ML IV SCH (05:00)
[2017-10-10] MEDS ORDERED: NovoLIN R BOLUS FROM BAG IV ONE (05:00)
[2017-10-10] MEDS ORDERED: GLUCAGON FOR INJ 1 MG VIAL SQ PRN ×2 (05:00→06:00)
[2017-10-10] MEDS ORDERED: DEXTROSE 50% 50 ML SYR IV PRN ×2 (05:00→06:00)
[2017-10-10] MEDS ORDERED: GLUCOSE 40% GEL 15 GM TUBE PO PRN ×2 (05:00→06:00)
[2017-10-10] MEDS ORDERED: ACETAMINOPHEN 325 MG TAB PO PRN (05:45)
[2017-10-10] MEDS ORDERED: ACETAMINOPHEN IV 100 ML IV PRN (06:00)
[2017-10-10] MEDS ORDERED: MoRPHine SULFATE 4 MG/ML 1 ML CARP\\VIAL IV PRN (06:00)
[2017-10-10] MEDS ORDERED: LORAZEPAM 2 MG/ML 1 ML VIAL IV PRN (06:00)
[2017-10-10] MEDS ORDERED: ONDANSETRON INJ 2 MG/ML 2 ML VIAL IV PRN (06:00)
[2017-10-10] MEDS ORDERED: OLANZAPINE 10 MG/2.1 ML SDV IM PRN (06:00)
[2017-10-10] MEDS ORDERED: FAMOTIDINE IV INJ 20 MG in DEXTROSE 5% 100ML 100 ML IV SCH (06:00)
[2017-10-10 06:14] VITALS: O2SAT 97
--- NOTE | 2017-10-10 06:35 | History and Physical ---
History & Physical Date & Time of Service: Oct 10, 2017 at 06:12 Chief Complaint: Evaluation Primary Care Physician: Debbie Lassiter CRNP History of Present Illness Source: clinic records, hospital records, EMS The patient is a 52-year-old male brought to the emergency department by EMS and the state police for a psychiatric evaluation. EMS reported to the ED that the patient barricaded himself and his in his house. He reportedly threatened to kill his and their cats. After the was able to escape, she ran to the police station, who then came to their home, accompanied by [employer]. The patient threatened to kill police and also asked the police to kill him. The patient and police were reportedly involved in 12 hour stand off were multiple gunshots were exchanged, but the patient was not hit. He was able to be removed from the house after being gassed, and was still somewhat combative after being tased twice by the police. The patient himself during my examination is sedated after receiving Geodon 20 mg IM and Ativan 2 mg IV and is not able to contribute to the history of present illness or review of systems. There is a 302 petition on file for the patient and a warmth for his arrest from state police. Past Medical/Surgical History Medical Problems: (1) Diab Tita Wo Compl, Type Ii Or Unspec Type, Not Uncntrld Status: Chronic (2) Lumbago Status: Chronic (3) Right arm cellulitis Status: Resolved Surgical Problems: (1) H/O lumbosacral spine surgery Status: Chronic Family History Diabetes mellitus FH: lung disease FHx: cancer FHx: heart disease Hypertension Kidney disease Kidney stones Social History Smoking Status: Unknown if Ever Smoked Smokeless Tobacco Use: Unknown Alcohol Use: unknown Drug Use: marijuana Marital Status: Housing status: lives with family Occupational Status: unemployed Immunizations History of Influenza Vaccine: No History of Tetanus Vaccine?: No History of Pneumococcal: No History of Hepatitis B Vaccine: No Multi-Drug Resistant Organisms History of MDRO: No Allergies Coded Allergies: Insulin (Verified Allergy, Severe, LOCALIZED REDNESS/SWELLING/LUMPS, ) PT STATES ALL INSULINS HE IS ALLERGIC TO Vortioxetine (Verified Allergy, Severe, PANCREATITIS, 08/10/17) Insulin Glargine (Verified Allergy, Intermediate, REDNESS LOCALIZED, LUMPS UNDER SKIN, 08/10/17) Alfuzosin (Verified Adverse Reaction, Unknown, "HEART ATTACK SYMPTOMS", ) Aspirin (Verified Adverse Reaction, Unknown, "STROKE LIKE SYMPTOMS", ) Home Medications Scheduled Folic Acid (Folvite), 1 MG PO 6XWK Meloxicam (Mobic), 15 MG PO 6XWK Metformin Hcl (Glucophage), 1,000 MG PO BID Methotrexate Sodium (Methotrexate), 10 MG PO WK Review of Systems The review of systems is as above noted in the history of present illness. The patient himself is unable to contribute to review of systems due to altered mental state and sedation. Physical Exam Vital Signs Date Time Temp Pulse Resp B/P (MAP) Pulse Ox O2 Delivery O2 Flow Rate FiO2 10/10/17 05:46 88 16 151/78 96 Nasal Cannula 2.0 10/10/17 05:16 36.6 91 16 142/91 97 Nasal Cannula 2.0 10/10/17 04:54 36.6 97 18 152/86 95 Nasal Cannula 2.0 10/10/17 04:27 98 20 177/86 95 Nasal Cannula 2.0 10/10/17 04:03 102 20 173/97 90 Room Air 10/10/17 03:16 120 10/10/17 03:13 36.6 117 30 179/103 97 Room Air The patient is sedated and unresponsive, normocephalic and atraumatic, lying in bed and in no acute distress. HEENT--PERRL, EOMI, mucous membranes and oropharynx dry. Neck--supple, no JVD or bruits, thyroid normal, trachea midline, no adenopathy. Heart--normal S1 and S2, no extra beats, no murmurs, rubs or gallops. Lungs--clear bilaterally but diminished throughout, no respiratory distress, no accessory muscle use. Abdomen--normal bowel sounds and soft, nontender and nondistended and obese. Extremities--no cyanosis, clubbing or edema. There are good distal pulses b/l. Dermatologic--abrasion to the left chest, left flank and upper extremities bilaterally. Neurologic--cranial nerves II through XII grossly intact. Rheumatologic--limited examination due to altered mental state and hard restraints Psychiatric--sedated. Diagnostics Laboratory Results Results Past 24 Hours Test 10/10/17 03:08 10/10/17 03:45 10/10/17 04:27 10/10/17 04:43 Range/Units White Blood Count 13.00 4.8-10.8 K/uL Red Blood Count 5.11 4.7-6.1 M/uL Hemoglobin 15.8 14.0-18.0 g/dL Hematocrit 44.6 42-52 % Mean Corpuscular Volume 87.3 80-100 fL Mean Corpuscular Hemoglobin 30.9 25-34 pg Mean Corpuscular Hemoglobin Concent 35.4 32-36 g/dl Platelet Count 327 130-400 K/uL Mean Platelet Volume 9.2 7.4-10.4 fL Neutrophils (%) (Auto) 88.0 % Lymphocytes (%) (Auto) 7.8 % Monocytes (%) (Auto) 3.7 % Eosinophils (%) (Auto) 0.0 % Basophils (%) (Auto) 0.2 % Neutrophils # (Auto) 11.45 1.4-6.5 K/uL Lymphocytes # (Auto) 1.01 1.2-3.4 K/uL Monocytes # (Auto) 0.48 0.11-0.59 K/uL Eosinophils # (Auto) 0.00 0-0.5 K/uL Basophils # (Auto) 0.02 0-0.2 K/uL RDW Standard Deviation 42.2 36.4-46.3 fL RDW Coefficient of Variation 13.3 11.5-14.5 % Immature Granulocyte % (Auto) 0.3 % Immature Granulocyte # (Auto) 0.04 0.00-0.02 K/uL Sodium Level 133 136-145 mmol/L Potassium Level 4.4 3.5-5.1 mmol/L Chloride Level 98 98-107 mmol/L Carbon Dioxide Level 19 21-32 mmol/L Anion Gap 16.0 3-11 mmol/L Blood Urea Nitrogen 12 7-18 mg/dl Creatinine 1.53 0.60-1.40 mg/dl Est Creatinine Clear Calc Drug Dose 75.7 ml/min Estimated GFR () 59.3 Estimated GFR (Non- 51.2 BUN/Creatinine Ratio 8.0 10-20 Random Glucose 423 70-99 mg/dl Calcium Level 9.1 8.5-10.1 mg/dl Total Bilirubin 0.5 0.2-1 mg/dl Direct Bilirubin 0.1 0-0.2 mg/dl Aspartate Amino Transf (AST/SGOT) 32 15-37 U/L Alanine Aminotransferase (ALT/SGPT) 65 12-78 U/L Alkaline Phosphatase 93 45-117 U/L Total Protein 8.1 6.4-8.2 gm/dl Albumin 4.0 3.4-5.0 gm/dl Beta-Hydroxybutyric Acid 3.33 0.2-2.81 mg/dL Thyroid Stimulating Hormone (TSH) 2.560 0.300-4.500 uIu/ml Ethyl Alcohol mg/dL < 3.0 0-3 mg/dl Urine Color YELLOW Urine Appearance CLEAR CLEAR Urine pH 5.0 4.5-7.5 Urine Specific [place] 1.038 1.000-1.030 Urine Protein NEG NEG Urine Glucose (UA) 3+ NEG Urine Ketones 1+ NEG Urine Occult Blood TRACE NEG Urine Nitrite NEG NEG Urine Bilirubin NEG NEG Urine Urobilinogen NEG NEG Urine Leukocyte Esterase NEG NEG Urine WBC (Auto) 1-5 0-5 /hpf Urine RBC (Auto) 0-4 0-4 /hpf Urine Hyaline Casts (Auto) 1-5 0-5 /lpf Urine Epithelial Cells (Auto) 5-10 0-5 /lpf Urine Bacteria (Auto) NEG NEG Urine Opiates Screen NEG NEG Urine Methadone, Qualitative NEG NEG Urine Barbiturates NEG NEG Urine Phencyclidine (PCP) Level NEG NEG Ur Amphetamine/Methamphetamine NEG NEG MDMA (Ecstasy) Screen NEG NEG Urine Benzodiazepines Screen NEG NEG Urine Cocaine Metabolite NEG NEG Urine Marijuana (THC) POS NEG Arterial Blood pH 7.38 7.35-7.45 Arterial Blood Partial Pressure CO2 38 35-46 mmHg Arterial Blood Partial Pressure O2 88 80-95 mm/Hg Arterial Blood HCO3 22 19-24 mmol/L Arterial Blood Oxygen Saturation 96.7 90-95 % Arterial Blood Base Excess -2.7 -9-1.8 mEq/L Arterial Blood Gas Delivery 2 L Bernard Test POS POS Bedside Glucose 337 70-99 mg/dl Impression Assessment and Plan Acute psychosis with agitation-- The patient was brought into the emergency department by EMS and state police due to a 12 hour barricade session in his home. He was reportedly tased twice by police after being gassed. Since he was still agitated in the emergency department, he received Geodon 20 mg IM, lorazepam 2 mg IV, and placed in hard locked [address] of the head was negative. CT of the cervical spine was negative Chest x-ray is negative. The patient will be admitted to the medical floor with one-on-one status with security present at all times. Nothing by mouth status except medications Zyprexa 10 mg IM every 4 hours when necessary agitation Lorazepam 2 mg IV every hour when necessary agitation Consult psychiatry Dr. Kalani Aranda NSS with KCl 20 mEq at 100 ml's per hour. Diabetes mellitus/hyperglycemia-- blood sugar upon entry was 423. Blood sugar has improved to 336 after 1 1/2 liters of normal saline in the ED The patient is reported to have allergies to insulin and insulin glargine. Hold metformin 1000 mg by mouth twice a day Place on Accu-Cheks every 6 hours without insulin coverage. NSS with KCl 20 mEq at 100 ML's per hour. Acute kidney injury-- Creatinine on admission is 1.53, with most recent creatinine in September being 1.09. Hydrate with IV fluids as above. Repeat BMP at noon today and every morning. Arthritis-- Hold methotrexate, meloxicam and folic acid. Level of Care Med/Surg Advanced Directives Existing Advance Directive: No Existing Living Will: No Existing Power of Fuel Testing Technician: No Resuscitation Status FULL RESUSCITATION VTE Prophylaxis VTE Risk Assessment Done? Y/N: Yes Risk Level: Moderate Given or contraindicated: Enoxaparin (Lovenox)SQ, SCD's Note Total Time: Critical Care 30 - 74 minutes
[2017-10-10 07:00] VITALS: BP 162/80; PULSE 100; TEMP 36.4; Ht 180.3 cm; Wt 126.8 kg
[2017-10-10] MEDS ORDERED: NSS + 20MEQ KCL 1000ML 1,000 ML IV SCH (07:00)
--- NOTE | 2017-10-10 07:35 | DIAGNOSTIC IMAGING REPORT ---
CT SCAN OF THE CERVICAL SPINE CLINICAL HISTORY: Head injury. Trauma. COMPARISON STUDY: No priors. TECHNIQUE: CT scan of the cervical spine is performed from the skull base to the upper thoracic spine. Images are reviewed in the axial, sagittal, and coronal planes. IV contrast was not administered for this examination. A dose lowering technique was utilized adhering to the principles of ALARA. CT DOSE: 1364.87 mGy.cm FINDINGS: Skeletal structures: The skeletal structures are well mineralized. There is no evidence of fracture or subluxation involving the cervical spine. Vertebral body height and alignment are maintained. Small anterior osteophytes are seen in the lower cervical region. The odontoid process and lateral masses are intact. The atlantoaxial articulation is preserved noting mild productive degenerative change. The spinous processes appear intact. Mild multilevel facet arthropathy is observed. Intervertebral discs: Mild disc space narrowing is seen at C5-C6. The remaining disc spaces appear maintained. Central canal: Grossly patent. Soft tissues: The prevertebral and paraspinous soft tissues are within normal limits. Calvarium: The visualized calvarium at the skull base appears intact. Brain parenchyma: Partially visualized brain parenchyma the skull base is within normal limits. Sinuses and mastoids: Mild mucosal thickening is seen in the maxillary antra. The remaining visualized paranasal sinuses are clear. There is a left mastoid effusion. The right mastoid air cells are well pneumatized. Lung apices: Clear as visualized. IMPRESSION: There is no evidence of fracture or subluxation involving the cervical spine. Electronically signed by: Michael Snider M.D. 10/10/2017 7:33 AM Dictated Date/Time: 10/10/2017 7:31 AM
--- NOTE | 2017-10-10 07:49 | DIAGNOSTIC IMAGING REPORT ---
CT SCAN OF THE BRAIN WITHOUT IV CONTRAST CLINICAL HISTORY: Trauma. Head injury. COMPARISON STUDY: CT of the brain dated 11/18/2014. TECHNIQUE: Unenhanced axial CT scan of the brain is performed from the vertex to the skull base. A dose lowering technique was utilized adhering to the principles of ALARA. The examination is degraded by motion artifact. CT DOSE: Reported separately and the concurrently performed CT scan of the cervical spine. FINDINGS: Brain parenchyma: The brain parenchyma is normal in appearance. There is no hemorrhage, mass effect, or evidence of acute territorial ischemia by CT criteria. Cohn-white matter is preserved. No extra-axial fluid collection is seen. Ventricles, sulci, cisterns: Normal in configuration. Intracranial vasculature: The visualized intracranial vasculature at the skull base is normal in appearance. Calvarium: There is no depressed calvarial fracture. Sinuses and mastoids: Trace mucosal thickening is seen in the maxillary antra. The remaining visualized paranasal sinuses appear clear. There is a small left mastoid effusion. The right mastoid air cells are well pneumatized. Orbits: The bony orbits are grossly intact. IMPRESSION: No acute intracranial abnormality noting a motion degraded examination. Electronically signed by: Michael Snider M.D. 10/10/2017 7:48 AM Dictated Date/Time: 10/10/2017 7:45 AM
--- NOTE | 2017-10-10 08:21 | DIAGNOSTIC IMAGING REPORT ---
SINGLE VIEW CHEST CLINICAL HISTORY: Change in mental status. FINDINGS: An AP, portable, upright chest radiograph is compared to study dated 04/27/2011. The examination is degraded by portable technique, large body habitus, and patient rotation. The heart is top normal for projection. The pulmonary vasculature is noncongested. There are low lung volumes with mild elevation of the right hemidiaphragm. Bibasilar atelectasis is observed. No pneumothorax is seen. The bony thorax is grossly intact. IMPRESSION: Low lung volumes with no acute cardiopulmonary abnormality. Electronically signed by: Michael Snider M.D. 10/10/2017 8:20 AM Dictated Date/Time: 10/10/2017 8:19 AM
[2017-10-10 08:36] LABS: INR 1.1 (0.9-1.1); PROTHROMBIN TIME (PATIENT) 11.3 SECONDS (9.0-12.0)
[2017-10-10] MEDS ORDERED: FAMOTIDINE IV INJ 20 MG in SYRINGE 3 ML IV SCH (09:00)
[2017-10-10] MEDS ORDERED: ENOXAPARIN 40 MG/0.4 ML SYR SQ SCH (09:00)
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
--- NOTE | 2017-10-10 16:24 | Discharge Instructions ---
Discharge Instructions Date of Service Oct 10, 2017. Admission Reason for Admission: Hyperglycemia Discharge Discharge Diagnosis / Problem: Hyperglycemia - improved Discharge Goals Goal(s): Diagnostic testing Activity Recommendations Activity Limitations: resume your previous activity . Instructions / Follow-Up Instructions / Follow-Up You have been counseled that blood work is needed to ensure that any previous blood work abnormalities have fully resolved. You have consistently refused to have additional blood work, take medication, or follow medical recommendations/advice. You have been counseled that you do have the right to refuse these recommendations but in doing so you take responsibility for your health. You have been further counseled that failing to follow medical advice can result in disability or ongoing sickness/illness. As a result of refusing to follow medical advice & recommendations please know that we, the medical team, will NOT be held responsible for your health or any ongoing morbidity or even mortality/. Current Hospital Diet Patient's current hospital diet: Diabetes Type 2 Diet Discharge Diet Recommended Diet: Diabetes Type 2 Diet Procedures Procedures Performed: CAT scan of head - negative. CAT scan of neck - no fractures. Pending Studies Studies pending at discharge: no Laboratory Results Hemoglobin A1c Test 08/09/17 09:01 Range/Units Estimated Average Glucose 223 mg/dl Hemoglobin A1c 9.4 H 4.5-5.6 % Medical Emergencies . Who to Call and When: Medical Emergencies: If at any time you feel your situation is an emergency, please call 911 immediately. . Non-Emergent Contact Non-Emergency issues call your: Primary Care Provider Call Non-Emergent contact if: you have any medication questions . . "Provider Documentation" section prepared by Stephen Palma. . VTE Core Measure Inpt VTE Proph given/why not?: Enoxaparin (Lovenox)SQ, SCD's
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
[2017-10-11] MEDS ORDERED: [UNRECOGNIZED DRUG - CODE] (14:44)
== END 2017-10-10 16:30 | DRG 638 ==
LOC: EDBD 03:02 → C.EDB 03:03 → EEVIPCON 06:03 → C.MED 06:03 → ENRESERV 06:26
PROVIDERS: ADMIT Hospitalist; ATTEND Internal Medicine
DX: E11.65 Type 2 diabetes mellitus with hyperglycemia (principal); N17.9 Acute kidney failure, unspecified; R45.851 Suicidal ideations; Z83.3 Family history of diabetes mellitus; Z82.49 Family history of ischemic heart disease and other diseases of the circulatory system; Z87.442 Personal history of urinary calculi; Z87.891 Personal history of nicotine dependence; F29 Unspecified psychosis not due to a substance or known physiological condition; R45.1 Restlessness and agitation; M19.90 Unspecified osteoarthritis, unspecified site; Z79.84 Long term (current) use of oral hypoglycemic drugs; R45.850 Homicidal ideations

== ENCOUNTER 2017-10-11 14:12 | Emergency (ER) | payer OTHER ==
[~2017-10-11] VITALS: Ht 182.9 cm; Wt 121.3 kg
[2017-10-11 14:26] VITALS: TEMP 36.8; Ht 182.9 cm; Wt 121.3 kg
[2017-10-11] MEDS ORDERED: MoRPHine SULFATE 10 MG/ML CARP/VIAL IV STA (14:40)
[2017-10-11] MEDS ORDERED: KETOROLAC TROMETHAMINE 30 MG/ML VIAL IV STA (14:40)
[2017-10-11] MEDS ORDERED: ONDANSETRON INJ 2 MG/ML 2 ML VIAL IV STA (14:40)
[2017-10-11] MEDS ORDERED: ACETAMINOPHEN 500 MG TAB PO STA (14:40)
[2017-10-11] MEDS ORDERED: [UNRECOGNIZED DRUG - CODE] (14:44)
--- NOTE | 2017-10-11 14:51 | EMERGENCY ROOM VISIT NOTE ---
History Report prepared by Melissa: Sherie Thomas Under the Supervision of: Dr. Go Bourgeois M.D. First contact with patient: 14:24 Chief Complaint: BACK PAIN Stated Complaint: BACK PAIN History of Present Illness The patient is a 52 year old white male with a past medical history of diabetes who presents to the ED with a cc of constant lower back pain beginning 2029 last night. He is not on any medications for his diabetes. Currently in the [facility]. [facility] states that the pt injured his back before showing up yesterday. He has burning at his incision site. Denies alcohol use or drugs. No bowel or bladder incontinence, or numbness of the legs. Source of History: patient, other ([facility] ) Onset: 2029 last night Position: back (lower) Timing: constant Associated Symptoms: No numbness (legs ) Note: Negative bowel or bladder incontinence Review of Systems See HPI for pertinent positives and negatives. A total of ten systems were reviewed and were otherwise negative. Past Medical & Surgical Medical Problems: (1) Diab Tita Wo Compl, Type Ii Or Unspec Type, Not Uncntrld (2) Hernia of abdominal cavity (3) Lumbago (4) Right arm cellulitis Surgical Problems: (1) H/O lumbosacral spine surgery Family History Diabetes mellitus FH: lung disease FHx: cancer FHx: heart disease Hypertension Kidney disease Kidney stones Social History Smoking Status: Current Every Day Smoker Alcohol Use: none Drug Use: marijuana Marital Status: Housing Status: lives with significant other Occupation Status: unemployed Current/Historical Medications Scheduled Folic Acid (Folvite), 1 MG PO 6XWK Meloxicam (Mobic), 15 MG PO 6XWK Metformin Hcl (Glucophage), 1,000 MG PO BID Methotrexate Sodium (Methotrexate), 10 MG PO WK Miscellaneous Medications Glucose Blood (Accu-Chek Keke Plus) Allergies Coded Allergies: Insulin (Verified Allergy, Severe, LOCALIZED REDNESS/SWELLING/LUMPS, ) PT STATES ALL INSULINS HE IS ALLERGIC TO Vortioxetine (Verified Allergy, Severe, PANCREATITIS, 08/10/17) Insulin Glargine (Verified Allergy, Intermediate, REDNESS LOCALIZED, LUMPS UNDER SKIN, 08/10/17) Alfuzosin (Verified Adverse Reaction, Unknown, "HEART ATTACK SYMPTOMS", ) Aspirin (Verified Adverse Reaction, Unknown, "STROKE LIKE SYMPTOMS", ) Physical Exam Vital Signs Date Time Temp Pulse Resp B/P (MAP) Pulse Ox O2 Delivery O2 Flow Rate FiO2 10/11/17 16:51 96 18 134/73 96 10/11/17 16:10 90 18 116/72 97 Room Air 10/11/17 14:28 92 10/11/17 14:26 36.8 95 22 151/83 97 Room Air Physical Exam GENERAL: Awake, alert, well-appearing, NAD. Uncomfortable. HENT: Normocephalic, atraumatic. EYES: Normal conjunctiva. Sclera non-icteric. NECK: Supple. No nuchal rigidity. FROM. RESPIRATORY: CTAB, no rhonchi, wheezing, crackles CARDIAC: RRR, no MRG ABDOMEN: Soft, NTND, BS+ MSK: No chest wall TTP, no LE edema. Abrasion to left shoulder vertical incision over the lower lumbar spine with no erythema, calor, or fluctuance. Pain superior to the right and lateral of incision NEURO: GCS 15, CN 2-12 intact, moves all 4s on command. NVI distally w/ B/L LEs to sp/dp/tib nerves to sensory and motor. SKIN: No rash or jaundice noted. Pain is out of proportion to the exam Medical Decision & Procedures ER Provider Diagnostic Interpretation: Radiology results as stated below per my review and radiologist interpretation: L-SPINE MIN 4 VIEWS ROUTINE CLINICAL HISTORY: Back pain COMPARISON STUDY: No previous studies for comparison. FINDINGS: There is a lumbar dextroscoliosis. No acute fractures or traumatic subluxations are visualized. There are mild to moderate multilevel degenerative changes present. Streaky lucencies within the soft tissues appear to parallel muscle bundles, and likely represent physiological fat within the muscle. Intramuscular air is statistically unlikely and would likely be evident clinically. There is a nonspecific 7 mm right mid abdominal calcification located inferior to the right kidney. This is not felt to be related to urinary tract. IMPRESSION: Scoliosis. Degenerative change. No fractures or subluxations identified. Electronically signed by: Joshua Troy M.D. 10/11/2017 3:54 PM Laboratory Results 10/11/17 15:06 Red Blood Count 4.92, Mean Corpuscular Volume 86.4, Mean Corpuscular Hemoglobin 30.5, Mean Corpuscular Hemoglobin Concent 35.3, Mean Platelet Volume 9.1, Neutrophils (%) (Auto) 67.7, Lymphocytes (%) (Auto) 20.2, Monocytes (%) (Auto) 11.2, Eosinophils (%) (Auto) 0.4, Basophils (%) (Auto) 0.3, Neutrophils # (Auto ) 6.28, Lymphocytes # (Auto) 1.88, Monocytes # (Auto) 1.04, Eosinophils # (Auto ) 0.04, Basophils # (Auto) 0.03 10/11/17 15:06 Test 10/11/17 15:06 White Blood Count 9.29 K/uL (4.8-10.8) Red Blood Count 4.92 M/uL (4.7-6.1) Hemoglobin 15.0 g/dL (14.0-18.0) Hematocrit 42.5 % (42-52) Mean Corpuscular Volume 86.4 fL (80-100) Mean Corpuscular Hemoglobin 30.5 pg (25-34) Mean Corpuscular Hemoglobin Concent 35.3 g/dl (32-36) Platelet Count 272 K/uL (130-400) Mean Platelet Volume 9.1 fL (7.4-10.4) Neutrophils (%) (Auto) 67.7 % Lymphocytes (%) (Auto) 20.2 % Monocytes (%) (Auto) 11.2 % Eosinophils (%) (Auto) 0.4 % Basophils (%) (Auto) 0.3 % Neutrophils # (Auto) 6.28 K/uL (1.4-6.5) Lymphocytes # (Auto) 1.88 K/uL (1.2-3.4) Monocytes # (Auto) 1.04 K/uL (0.11-0.59) Eosinophils # (Auto) 0.04 K/uL (0-0.5) Basophils # (Auto) 0.03 K/uL (0-0.2) RDW Standard Deviation 42.4 fL (36.4-46.3) RDW Coefficient of Variation 13.4 % (11.5-14.5) Immature Granulocyte % (Auto) 0.2 % Immature Granulocyte # (Auto) 0.02 K/uL (0.00-0.02) Anion Gap 4.0 mmol/L (3-11) Est Creatinine Clear Calc Drug Dose 123.5 ml/min Estimated GFR () 108.2 Estimated GFR (Non- 93.4 BUN/Creatinine Ratio 10.7 (10-20) Calcium Level 8.7 mg/dl (8.5-10.1) Laboratory results reviewed by me Medications Administered Medications (Trade) Dose Ordered Sig/Demian Route Start Time Stop Time Status Last Admin Dose Admin Ondansetron HCl (Zofran Inj) 4 mg NOW STAT IV 10/11/17 14:40 10/11/17 14:42 DC 10/11/17 15:14 4 MG Morphine Sulfate (MoRPHine SULFATE INJ) 8 mg NOW STAT IV 10/11/17 14:40 10/11/17 14:42 DC 10/11/17 15:15 8 MG Acetaminophen (Tylenol Tab) 1,000 mg NOW STAT PO 10/11/17 14:40 10/11/17 14:42 DC 10/11/17 15:14 1,000 MG Ketorolac Tromethamine (Toradol Inj) 30 mg NOW STAT IV 10/11/17 14:40 10/11/17 14:42 DC 10/11/17 15:13 30 MG ED Course 1440: The patient was evaluated in room C11A. A complete history and physical exam was performed. 1631: I reevaluated the patient. He was sleeping and resting comfortably. 1650: I reevaluated the patient. Discussed results and discharge instructions: He verbalized understanding and agreement. The patient is ready for discharge. Medical Decision The patient is a 52 year old white male with a past medical history of diabetes who presents to the ED with a cc of constant lower back pain beginning 2030 last night. Differential diagnosis: Etiologies such as musculoskeletal, disc herniation, fracture, aortic disease, metastatic disease, cord compression, discitis, infection, renal colic, gastrointestinal, acute exacerbation of chronic back pain, sciatica, cauda equina, as well as others were entertained. Patient was seen and evaluated at the bedside. Patient is a 52-year-old with a known history of diabetes and a prior back surgery states that he has had back pain since last evening when he was arrested at approximately 8:30. Patient denies any bowel or bladder incontinence. Patient is not receiving pain medication. Patient's vitals are stable and is afebrile here patient denies any drug use or history of cancers. Patient otherwise has no neurovascular deficits distally. Patient did have blood work completed along with a plain film of the lumbar spine and pain control. Upon reevaluation patient was sleeping. Patient denied any pain. Patient had unremarkable plain films. Patient not have an elevated white count. I do not believe that the patient has any high risk signs concerning for more advanced imaging needs. Do not believe he has cauda equina given is not had any bowel or bladder incontinence and other high risk findings or features. Patient deemed suitable for outpatient follow-up and treatment.Patient was given strict follow-up, discharge , and return precautions. All questions were answered. Patient was deemed suitable for outpatient follow-up at this time. Patient agreed with the plan of care and was safely discharged back to care home. Medication Reconcilliation Current Medication List: was personally reviewed by me Blood Pressure Screening Patient's blood pressure: Normal blood pressure Blood pressure disposition: Did not require urgent referral Impression Primary Impression: Back pain Scribe Attestation The scribe's documentation has been prepared under my direction and personally reviewed by me in its entirety. I confirm that the note above accurately reflects all work, treatment, procedures, and medical decision making performed by me. Departure Information Dispostion Home / Self-Care Referrals [facility] (PCP) Patient Instructions Back Pain - [facility], Back Pain Relieve, My [facility] Additional Instructions Please return to the emergency department if you have worsening or recurrent symptoms not amenable to at-home treatment. Please call for a follow-up appointment with her primary care physician. Please take your medications as prescribed. If you have other concerns and/or complaints please feel free to also call your primary care physician's office or return the ED for further evaluation, management, and treatment. You were found to have an elevated blood pressure today (>120 sytolic or >90 diastolic). Per medicare guidelines, you need to follow up with this blood pressure screening with your Primary Care Physician (PCP). For a new PCP call [phone]. You received narcotic or benzodiazepene medication while in the emergency room today. This is an addictive medication that may cause drowziness as well as constipation. Do not drive, operate heavy machinery, or drink alcohol under the influence of this medication. You may take 600 mg Ibuprofen every 6 hours as needed for pain with food for no more than 2 consecutive days. You may take tylenol 1000 mg every 6 hours as needed for pain. You may take motrin and tylenol separately or at the same time. Take your medications as prescribed. You have been examined and treated today on an emergency basis only. This is not a substitute for, or an effort to provide, complete comprehensive medical care. It is impossible to recognize and treat all injuries or illnesses in a single emergency department visit. It is therefore important that you follow up closely with [facility], your PCP, and/or your specialist(s). Call as soon as possible for an appointment. Thank you for your time and consideration. I look forward to speaking with you again soon. Please don't hesitate to call us if you have any questions. Problem Qualifiers Primary Impression: Back pain Back pain location: low back pain Chronicity: acute Back pain laterality: right Sciatica presence: without sciatica Qualified Codes: M54.5 - Low back pain
[2017-10-11 15:30] LABS: BASO % 0.3 %; BASO ABS # 0.03 K/uL (0-0.2); COMPLETE YES; EOS % 0.4 %; HEMATOCRIT 42.5 % (42-52); IG% 0.2 %; LYMPH % 20.2 %; LYMPH ABS # 1.88 K/uL (1.2-3.4); MEAN CELL VOLUME 86.4 fL (80-100); MEAN CORPUSCULAR HEMOGLOBIN 30.5 pg (25-34); MEAN CORPUSCULAR HGB CONC 35.3 g/dl (32-36); MEAN PLATELET VOLUME 9.1 fL (7.4-10.4); MONO % 11.2 %; NEUT % 67.7 %; PLATELET COUNT 272 K/uL (130-400); RED BLOOD COUNT 4.92 M/uL (4.7-6.1); WHITE BLOOD COUNT 9.29 K/uL (4.8-10.8)
[2017-10-11 15:50] LABS: BUN/CREATININE RATIO 10.7 (10-20); CALCIUM 8.7 mg/dl (8.5-10.1); CREATININE 0.93 mg/dl (0.60-1.40); POTASSIUM 3.7 mmol/L (3.5-5.1)
--- NOTE | 2017-10-11 15:56 | DIAGNOSTIC IMAGING REPORT ---
L-SPINE MIN 4 VIEWS ROUTINE CLINICAL HISTORY: Back pain COMPARISON STUDY: No previous studies for comparison. FINDINGS: There is a lumbar dextroscoliosis. No acute fractures or traumatic subluxations are visualized. There are mild to moderate multilevel degenerative changes present. Streaky lucencies within the soft tissues appear to parallel muscle bundles, and likely represent physiological fat within the muscle. Intramuscular air is statistically unlikely and would likely be evident clinically. There is a nonspecific 7 mm right mid abdominal calcification located inferior to the right kidney. This is not felt to be related to urinary tract. IMPRESSION: Scoliosis. Degenerative change. No fractures or subluxations identified. Electronically signed by: Joshua Troy M.D. 10/11/2017 3:54 PM Dictated Date/Time: 10/11/2017 3:51 PM
[2017-10-11 16:51] VITALS: BP 134/73; PULSE 96; O2SAT 96
== END 2017-10-11 16:57 | disposition home or self-care (01) ==
LOC: EDBD 14:12 → C.EDC 14:16
DX: M54.5 Low back pain (principal); E11.9 Type 2 diabetes mellitus without complications; F17.200 Nicotine dependence, unspecified, uncomplicated; Z86.19 Personal history of other infectious and parasitic diseases; Z79.84 Long term (current) use of oral hypoglycemic drugs; Z79.899 Other long term (current) drug therapy; Z88.6 Allergy status to analgesic agent; Z88.8 Allergy status to other drugs, medicaments and biological substances; Z83.3 Family history of diabetes mellitus; Z80.9 Family history of malignant neoplasm, unspecified; Z82.49 Family history of ischemic heart disease and other diseases of the circulatory system; Z84.1 Family history of disorders of kidney and ureter